=== PATIENT | male | born 1960 | race Caucasian/White ===

== ENCOUNTER 2017-03-05 08:17 | Emergency (ER) | payer MEDICARE, OTHER ==
[~2017-03-05] VITALS: Ht 180.3 cm; Wt 99.8 kg
[2017-03-05] MEDS ORDERED: KETOROLAC TROMETH 60MG/2ML VIAL IM ONE (11:45)
[2017-03-05 12:19] VITALS: BP 125/86
== END 2017-03-05 12:14 | disposition home or self-care (01) ==
LOC: ER 08:17
DX: M54.6 Pain in thoracic spine (principal); I10 Essential (primary) hypertension
CPT/HCPCS: 71046; 93005; 96372; 99284; J1885